=== PATIENT | female | born 1935 | race Caucasian/White ===

== ENCOUNTER 2016-10-11 12:20 | Inpatient (IN) | payer MEDICARE, BC ==
[~2016-10-11] VITALS: Ht 165.1 cm; Wt 64.9 kg
[~2016-10-11 12:20] MED LIST: ABAT250V IV; APIX2.5T PO; CALC500T71 PO; CHOL100043 PO; DILT120T2 PO; FOLI1TAB16 PO; FURO-152 PO; HYDR-3657 PO; LOSA50TA21 PO; METH15TA3 PO; MULT-661 PO; PRAV20TA PO; VIT1CAPS32 PO; VIT1CAPS9 PO; ZOLE5INF IV
--- NOTE | 2016-10-11 12:35 | NUR ---
Approx 10 days ago, pt states she developed s/s of a head cold, since has spread more of chest/bronchial infection with productive, yellow sputum, cough, and started to develop slight dyspnea. LS =, slightly diminished with crackles. Pt denies CP, dizziness, n/v, no other complaints, no distress noted.
[2016-10-11] MEDS ORDERED: ONDA4TAB11 PO (12:49)
[2016-10-11] MEDS ORDERED: VIT1CAPS9 PO (12:49)
[2016-10-11] MEDS ORDERED: ERGO500047 PO (12:49)
[2016-10-11] MEDS ORDERED: ATEN25TA PO (12:49)
[2016-10-11] MEDS ORDERED: CEFTRIAXONE 1 G in IV DEXTROSE 5% 50 ML IV ONE (13:00)
[2016-10-11] MEDS ORDERED: IV NORMAL SALINE 500 ML BAG IV ONE (13:00)
[2016-10-11] MEDS ORDERED: ALBUTEROL SULFATE 2.5 MG/3 ML NEBU NEB ONE (13:00)
[2016-10-11] MEDS ORDERED: AZITHROMYCIN IV 500 MG in IV DEXTROSE 5% 250 ML IV ONE (13:00)
[2016-10-11 13:08] LABS: BASOPHILS # (AUTO) 0.1 K/uL (0.0-8.0); BASOPHILS % (AUTO) 0.9 % (0.0-2.0); EOSINOPHILS # (AUTO) 0.2 K/uL (0.0-0.7); EOSINOPHILS % (AUTO) 1.9 % (0.0-7.0); HEMATOCRIT 32.7 % (37-47); HEMOGLOBIN 10.7 G/DL (12.0-16.0); LYMPHOCYTES # (AUTO) 0.7 K/UL (0.8-4.8); LYMPHOCYTES % (AUTO) 6.3 % (20.5-51.5); MEAN CORPUSCULAR HEMOGLOBIN 30.3 UUG (27.0-31.0); MEAN CORPUSCULAR HGB CONC 33 g/dL (32.0-37.0); MEAN CORPUSCULAR VOLUME 92.7 FL (81.0-99.0); NEUTROPHILS # (AUTO) 8.8 K/UL (1.8-8.9); NEUTROPHILS % (AUTO) 81.9 % (38.5-71.5); PLATELET COUNT (AUTO) 440 K/UL (150-450); RED BLOOD CELL COUNT(AUTO) 3.53 MIL/UL (4.2-5.4); WHITE BLOOD COUNT (AUTO) 10.8 K/UL (4.0-11.2)
[2016-10-11] MEDS ORDERED: ALBUTEROL SULFATE 2.5 MG/3 ML NEBU ONE (13:08)
[2016-10-11 13:17] LABS: CARBON DIOXIDE 27 mmol/L (21-32); CHLORIDE 105 mmol/L (98-107); CREATININE 1.5 mg/dL (0.6-1.3); GLUCOSE 107 mg/dL (74-106); POTASSIUM 4.2 mmol/L (3.5-5.1); UREA NITROGEN, BLOOD 19 mg/dL (7-18)
[2016-10-11 13:24] LABS: BAND % (MANUAL) 7 % (0-10); EOSINOPHILS % (MANUAL) 4 % (0-8); LYMPHOCYTES % (MANUAL) 6 % (20-40); MONOCYTES % (MANUAL) 7 % (2-10); MYELOCYTES % 1 % (0-0); NEUTROPHILS % (MANUAL) 75 % (42-75)
[2016-10-11 13:30] LABS: ALANINE AMINOTRANSFERASE 14 U/L (14-59); ALKALINE PHOSPHATASE 62 U/L (50-136); ASPARTATE AMINOTRANSFERASE 16 U/L (15-37); BILIRUBIN,DIRECT 0.1 mg/dL (0.0-0.2); BILIRUBIN,TOTAL 0.3 mg/dL (0.2-1.0); TOTAL PROTEIN, SERUM 6.9 g/dL (6.4-8.2)
--- NOTE | 2016-10-11 16:10 | NUR ---
called to give report to Jono, she will call back
--- NOTE | 2016-10-11 16:17 | NUR ---
Gave report to YAHAIRA De La Cruz. Pt resting in bed, no complaints, no distress noted
--- NOTE | 2016-10-11 16:45 | NUR ---
NEW PATIENT TO ROOM 214 AWAKE ALERT COOPERATE WELL NO SOB AT THIS TIME VS TAKEN STABLE CALL LIGHT INSTRUCTION AND TOLD TO CALL WHEN NEEDED
[2016-10-11 17:09] VITALS: BP 128/51
--- NOTE | 2016-10-11 17:30 | NUR ---
GRIS GARCIA WAS CALL TO INFORM OF PATIENT ADM AND NEW ORDER IN CHART EAT DINNER WELL FAMILY AT BEDSIDE
[2016-10-11] MEDS ORDERED: BUMETANIDE INJ 3 MG in IV DEXTROSE 5% 48 ML IV ONE (18:00)
[2016-10-11] MEDS ORDERED: ONDANSETRON ODT 4 MG TAB.RAPDIS SL PRN (18:00)
[2016-10-11] MEDS ORDERED: ACETAMINOPHEN 325 MG TABLET PO PRN (18:00)
--- NOTE | 2016-10-11 18:00 | NUR ---
C/O OF BACK PAIN MED GIVEN ORDER
[2016-10-11] MEDS: HYDROCODONE/APAP 10-325 MG TABLET PO PRN (18:09)
[2016-10-11] MEDS: APIXABAN 5 MG TABLET PO SCH (18:35)
[2016-10-11 20:00] VITALS: BP 135/52
[2016-10-11] MEDS: ATORVASTATIN 20 MG TABLET PO SCH (20:45)
--- NOTE | 2016-10-11 20:55 | NUR ---
PT BACK FROM CT SCAN, NOT DONE DUE TO VERTIGO. PT STATES MECLIZINE WORKS FOR HER FOR VERTIGO. MD GRIS WELCH MADE AWARE, WITH NEW ORDER. CARRIED OUT. WILL CONTINUE TO MONITOR.
[2016-10-11] MEDS: ATENOLOL 25 MG TABLET PO SCH (20:56)
[2016-10-11] MEDS ORDERED: MECLIZINE HCL 25 MG TABLET PO PRN (21:00)
[2016-10-11] MEDS ORDERED: MECLIZINE HCL 25 MG TABLET ONE (21:01)
[2016-10-11] MEDS ORDERED: ATENOLOL 25 MG TABLET ONE (21:04)
--- NOTE | 2016-10-11 22:20 | NUR ---
PT BACK FROM CT OF CHEST W/O CONTRAST, SECOND ATTEMPT SUCCESSFUL. MED EFFECTIVE. PT A/OX4, IN NO ACUTE DISTRESS. NO SOB NOTED/REPORTED. DENIES N/V AT THIS TIME. BUMEX STARTED ORDERED. CALL LIGHT IN REACH. SAFETY MEASURES IN PLACE. WILL CONTINUE TO MONITOR.
[2016-10-12] VITALS: BP 145/63
[2016-10-12] MEDS: HYDROCODONE/APAP 10-325 MG TABLET PO PRN ×4 (00:03→23:42)
[2016-10-12 04:00] VITALS: BP 130/63
[2016-10-12 04:59] LABS: *BILIRUBIN,URIN NEGATIVE (NEGATIVE); *BLOOD, URINE NEGATIVE (NEGATIVE); *CLARITY,URINE CLEAR (CLEAR); *COLOR,URINE STRAW (YELLOW); *KETONES,URINE NEGATIVE (NEGATIVE); *PROTEIN,URINE NEGATIVE (NEGATIVE); *UROBILINOGEN,URINE 0.2 E.U./dl (NORMAL); LEUKOCYTE ESTERASE ,URINE TRACE (NEGATIVE); NITRITE, URINE NEGATIVE (NEGATIVE); UGLUCOSE NEGATIVE (NEGATIVE)
[2016-10-12 05:46] LABS: BACTERIA,URINE NONE SEEN /HPF (NONE SEEN); RBC,URINE 0-3 /HPF (0-3); SQUAMOUS EPITHELIAL CELL,UR FEW /HPF (NONE SEEN)
[2016-10-12 06:40] LABS: BASOPHILS # (AUTO) 0.1 K/uL (0.0-8.0); BASOPHILS % (AUTO) 0.7 % (0.0-2.0); EOSINOPHILS # (AUTO) 0.3 K/uL (0.0-0.7); EOSINOPHILS % (AUTO) 2.8 % (0.0-7.0); HEMATOCRIT 31.5 % (37-47); HEMOGLOBIN 10.7 G/DL (12.0-16.0); LYMPHOCYTES # (AUTO) 0.8 K/UL (0.8-4.8); LYMPHOCYTES % (AUTO) 8.4 % (20.5-51.5); MEAN CORPUSCULAR HEMOGLOBIN 32.1 UUG (27.0-31.0); MEAN CORPUSCULAR HGB CONC 34 g/dL (32.0-37.0); MEAN CORPUSCULAR VOLUME 95.1 FL (81.0-99.0); MONOCYTES # (AUTO) 1.3 K/UL (0.1-1.30); MONOCYTES % (AUTO) 13.9 % (0.0-11.0); NEUTROPHILS # (AUTO) 7.1 K/UL (1.8-8.9); NEUTROPHILS % (AUTO) 74.2 % (38.5-71.5); PLATELET COUNT (AUTO) 408 K/UL (150-450); RED BLOOD CELL COUNT(AUTO) 3.32 MIL/UL (4.2-5.4); WHITE BLOOD COUNT (AUTO) 9.6 K/UL (4.0-11.2)
--- NOTE | 2016-10-12 06:57 | NUR ---
PT SLEPT INTERMITTENTLY THROUGHOUT THE NIGHT. NO ACUTE DISTRESS NOTED. C/O HIP AND BACK PAIN MANAGED WITH PRN PAIN MED GIVEN X1 PER SHIFT, EFFECTIVE. BRP WITH WALKER WITH ASSIST, STEADY GAIT, GOOD URINE OUTPUT, DIURETIC EFFECTIVE. VS STABLE. ON TELE: SR ON THE MONITOR, HR-[id number]. ALL SAFETY NEEDS MET. CALL LIGHT IN REACH. CONTINUE PLAN OF CARE.
[2016-10-12 07:09] LABS: ALANINE AMINOTRANSFERASE 12 U/L (14-59); ALKALINE PHOSPHATASE 61 U/L (50-136); ASPARTATE AMINOTRANSFERASE 17 U/L (15-37); BILIRUBIN,TOTAL 0.2 mg/dL (0.2-1.0); CARBON DIOXIDE 29 mmol/L (21-32); CHLORIDE 105 mmol/L (98-107); CHOLESTEROL 124 mg/dL (<200); CREATININE 1.4 mg/dL (0.6-1.3); GLUCOSE 89 mg/dL (74-106); HDL CHOLESTEROL 31 mg/dL (40-60); MAGNESIUM 1.8 mg/dL (1.8-2.4); PHOSPHOROUS 3.2 mg/dL (2.5-4.9); POTASSIUM 3.9 mmol/L (3.5-5.1); TOTAL PROTEIN, SERUM 6.9 g/dL (6.4-8.2); TRIGLYCERIDES 137 MG/DL (30-150); UREA NITROGEN, BLOOD 18 mg/dL (7-18)
[2016-10-12 07:11] LABS: THYROID STIMULATING HORMONE 1.915 mIU/mL (0.358-3.740)
[2016-10-12] MEDS: DILTIAZEM HCL CD 120 MG CAP.SR.24H PO SCH (08:05)
[2016-10-12] MEDS: FUROSEMIDE 20 MG TABLET PO SCH (08:05)
--- NOTE | 2016-10-12 08:30 | NUR ---
AWAKE ALERT COOPERATE WELL NO SOB STATE PAIN MED HELP TO RELIEF PAIN EAT BREAKFAST MOD AMT ON ASPIRATION /FALL PRECAUTION CALL DHILLON IN REACH
[2016-10-12] MEDS ORDERED: LOSARTAN POTASSIUM 50 MG TABLET PO SCH (09:00)
[2016-10-12] MEDS ORDERED: ATENOLOL 25 MG TABLET PO SCH (09:00)
--- NOTE | 2016-10-12 10:30 | NUR ---
DR WELCH AND DR FRIEDMAN SEE PATIENT AND ORDER CT OF LUNG WITH BX AND THORACETESIS CONSENT SIGNS AND EXPLAINED PROCEDURE TO PATIENT BY DR ,VERBALIZES UNDERSTAND
[2016-10-12] MEDS: AZITHROMYCIN 250 MG TABLET PO SCH (10:36)
[2016-10-12] MEDS: APIXABAN 5 MG TABLET PO SCH ×2 (10:37→17:30)
[2016-10-12] MEDS ORDERED: PATIENT MAY USE OWN MED- MD OK PO SCH (11:45)
[2016-10-12 12:16] VITALS: BP 117/50
--- NOTE | 2016-10-12 14:00 | NUR ---
CONSENT SIGNS FOR THORACENTESIS AND CT LUNG WITH BX TODAY
[2016-10-12 15:47] VITALS: BP 101/44
--- NOTE | 2016-10-12 16:00 | NUR ---
THORACENTESIS PERFORM AT BEDSIDE RAMOS PROCEDURE WELL TAKE OUT PLEURAL FLD 610ML AND SENT TO LAB ORDER
--- NOTE | 2016-10-12 16:30 | NUR ---
VS TAKEN STABLE CXR DONE AFTER PROCEDURE PROTOCOL NO PAIN OR SOB FRIEND AT BEDSIDE
[2016-10-12] MEDS: PRESERVISION PO SCH (17:30)
[2016-10-12] MEDS: CRANBERRY 4200 MG PO SCH (17:30)
--- NOTE | 2016-10-12 18:00 | NUR ---
RESTING QUIET NO SOB OR RESPIRATORY DISTRESS SAFETY MEASURE PROVIDED CALL DHILLON WITHIN REACH
--- NOTE | 2016-10-12 19:40 | NUR ---
PT RECEIVED IN BED, AWAKE, ALERT AND COMFORTABLE. ABLE TO MAKE NEEDS KNOWN. SAFETY MEASURES IMPLEMENTED. CALL LIGHT WITHIN REACH. WILL CONTINUE TO MONITOR.
[2016-10-12] MEDS: ATORVASTATIN 20 MG TABLET PO SCH (20:10)
[2016-10-12] MEDS: ATENOLOL 25 MG TABLET PO SCH (20:11)
[2016-10-12 20:20] VITALS: BP 112/45
[2016-10-12 22:40] LABS: *URINE TOTAL PROTEIN RANDOM 25.2 mg/dL (<150/24HR)
[2016-10-13] VITALS: BP 120/65
[2016-10-13 04:00] VITALS: BP 94/59
--- NOTE | 2016-10-13 06:39 | NUR ---
END OF SHIFT NOTES. PT SLEPT WELL THROUGHOUT SHIFT. NEEDS ATTENDED. V/S STABLE. NO SIGNS OF ACUTE DISTRESS. PT SINUS EMILIANA AT 58 ON TELE. SAFETY MAINTAINED.
[2016-10-13 06:49] LABS: BASOPHILS # (AUTO) 0.1 K/uL (0.0-8.0); BASOPHILS % (AUTO) 0.8 % (0.0-2.0); EOSINOPHILS # (AUTO) 0.3 K/uL (0.0-0.7); EOSINOPHILS % (AUTO) 2.7 % (0.0-7.0); HEMATOCRIT 32.3 % (37-47); HEMOGLOBIN 10.8 G/DL (12.0-16.0); LYMPHOCYTES # (AUTO) 1.2 K/UL (0.8-4.8); LYMPHOCYTES % (AUTO) 12.2 % (20.5-51.5); MEAN CORPUSCULAR HEMOGLOBIN 31.9 UUG (27.0-31.0); MEAN CORPUSCULAR HGB CONC 34 g/dL (32.0-37.0); MEAN CORPUSCULAR VOLUME 95.3 FL (81.0-99.0); MONOCYTES # (AUTO) 1.4 K/UL (0.1-1.30); MONOCYTES % (AUTO) 15.1 % (0.0-11.0); NEUTROPHILS # (AUTO) 6.5 K/UL (1.8-8.9); NEUTROPHILS % (AUTO) 69.2 % (38.5-71.5); PLATELET COUNT (AUTO) 404 K/UL (150-450); RED BLOOD CELL COUNT(AUTO) 3.39 MIL/UL (4.2-5.4); WHITE BLOOD COUNT (AUTO) 9.5 K/UL (4.0-11.2)
[2016-10-13 07:07] LABS: ALANINE AMINOTRANSFERASE 11 U/L (14-59); ALKALINE PHOSPHATASE 61 U/L (50-136); ASPARTATE AMINOTRANSFERASE 18 U/L (15-37); BILIRUBIN,TOTAL 0.2 mg/dL (0.2-1.0); CARBON DIOXIDE 31 mmol/L (21-32); CHLORIDE 103 mmol/L (98-107); CREATINE KINASE, TOTAL 27 U/L (26-192); CREATININE 1.7 mg/dL (0.6-1.3); GLUCOSE 98 mg/dL (74-106); LACTATE DEHYDROGENASE 209 U/L (81-234); MAGNESIUM 2.1 mg/dL (1.8-2.4); PHOSPHOROUS 4.2 mg/dL (2.5-4.9); POTASSIUM 4.4 mmol/L (3.5-5.1); TOTAL PROTEIN, SERUM 6.6 g/dL (6.4-8.2); UREA NITROGEN, BLOOD 25 mg/dL (7-18)
[2016-10-13 07:13] LABS: THYROID STIMULATING HORMONE 0.775 mIU/mL (0.358-3.740)
[2016-10-13 07:23] LABS: IRON, SERUM 13 ug/dL (50-175)
[2016-10-13 07:45] LABS: FERRITIN 295 ng/mL (8-252)
[2016-10-13] MEDS: HYDROCODONE/APAP 10-325 MG TABLET PO PRN ×3 (08:45→19:46)
[2016-10-13] MEDS: AZITHROMYCIN 250 MG TABLET PO SCH (08:45)
[2016-10-13] MEDS: FUROSEMIDE 20 MG TABLET PO SCH (08:45)
[2016-10-13] MEDS: PRESERVISION PO SCH ×2 (08:48→16:37)
[2016-10-13] MEDS: CRANBERRY 4200 MG PO SCH ×2 (08:48→16:37)
[2016-10-13] MEDS ORDERED: IV 1/2NS 1000 ML 500 ML IV ONE (09:15)
[2016-10-13 09:48] LABS: *BILIRUBIN,URIN NEGATIVE (NEGATIVE); *BLOOD, URINE NEGATIVE (NEGATIVE); *COLOR,URINE YELLOW (YELLOW); *KETONES,URINE NEGATIVE (NEGATIVE); *PROTEIN,URINE 1+ (NEGATIVE); *UROBILINOGEN,URINE 0.2 E.U./dl (NORMAL); LEUKOCYTE ESTERASE ,URINE NEGATIVE (NEGATIVE); NITRITE, URINE NEGATIVE (NEGATIVE); UGLUCOSE NEGATIVE (NEGATIVE)
[2016-10-13 10:12] LABS: *CLARITY,URINE HAZY (CLEAR)
[2016-10-13 10:13] LABS: BACTERIA,URINE FEW /HPF (NONE SEEN); RBC,URINE 0-3 /HPF (0-3); SQUAMOUS EPITHELIAL CELL,UR MODERATE /HPF (NONE SEEN); WBC,URINE 0-3 /HPF (0-3)
[2016-10-13] MEDS: APIXABAN 5 MG TABLET PO SCH (10:17)
[2016-10-13] MEDS: DILTIAZEM HCL CD 120 MG CAP.SR.24H PO SCH (10:22)
[2016-10-13 11:43] LABS: BAND % (MANUAL) 3 % (0-10); EOSINOPHILS % (MANUAL) 2 % (0-8); LYMPHOCYTES % (MANUAL) 12 % (20-40); MONOCYTES % (MANUAL) 12 % (2-10); NEUTROPHILS % (MANUAL) 71 % (42-75)
[2016-10-13 11:54] VITALS: BP 109/48
[2016-10-13] MEDS ORDERED: IPRATROPIUM BROMIDE 0.5 MG/2.5 ML NEBU NEB PRN (13:00)
[2016-10-13] MEDS ORDERED: ALBUTEROL SULFATE 2.5 MG/3 ML NEBU NEB PRN (13:00)
[2016-10-13] MEDS: CEFTRIAXONE 1 G in IV DEXTROSE 5% 50 ML IV SCH (13:42)
[2016-10-13] MEDS ORDERED: MAGNESIUM HYDROXIDE 30 ML LIQUID UDC PO PRN (15:15)
--- NOTE | 2016-10-13 15:17 | NUR ---
CONSENT FOR BRONCHOSCOPY SIGNED
[2016-10-13] MEDS ORDERED: MIRALAX 17 GM POWD.PACK PO PRN (15:30)
[2016-10-13 15:38] VITALS: BP 107/48
--- NOTE | 2016-10-13 18:40 | NUR ---
END OF SHIFT NOTE: PT RESTING COMFORTABLY IN BED, IV INTACT AND PATENT. PT MADE AWARE OF NPO STATUS AT 4AM. 6 AM MEDS OKAY WITH SIP OF WATER PER DR FRIEDMAN. PT WILL HAVE BRONCHOSCOPY TOMORROW AROUND NOON. URINE COLLECTED AND SENT TO LAB. PT STATES HAVE NOT HAD BM SINCE WEDNESDAY, SENNA ORDERED FOR TONIGHT. PT DID NOT WANT PT TODAY. MEDICATED FOR PAIN NEEDED. ALL SAFETY AND COMFORT MEASURES MAINTAINED THROUGHOUT SHIFT, CALL LIGHT IN REACH
[2016-10-13 19:00] VITALS: BP 117/50
[2016-10-13] MEDS: SENNOSIDES 1 TABLET PO SCH (20:12)
[2016-10-13] MEDS: FERROUS SULFATE 325 MG TABEC PO SCH (20:12)
[2016-10-13] MEDS: ATORVASTATIN 20 MG TABLET PO SCH (20:12)
--- NOTE | 2016-10-13 20:15 | NUR ---
RECEIVED PT IN BED A/OX4, NO ACUTE DISTRESS NOTED. BREATHING IS NONLABORED. PT C/O SEVERE PAIN REQUESTING PAIN MED, NORCO GIVEN PRESCRIBED. WILL REASSESS. PT NOTED TO HAVE MILD FEVER, TYLENOL GIVEN ORDERED. ALL NEEDS ATTENDED AT THIS TIME. MADE COMFORTABLE. CALL LIGHT IN REACH. BED IN LOW/LOCKED POSITION. WILL CONTINUE TO MONITOR.
[2016-10-14 04:00] VITALS: BP 138/50
[2016-10-14] MEDS: PANTOPRAZOLE SODIUM 40 MG TABLET.DR PO SCH (06:00)
--- NOTE | 2016-10-14 06:31 | NUR ---
END OF SHIFT NOTE: PT IN BED RESTING COMFORTABLY. NO ACUTE DISTRESS NOTED PER SHIFT. VS STABLE. AFEBRILE. KEPT NPO AFTER 4AM FOR BRONCHOSCOPY, EXCEPT MEDS. UNABLE TO OBTAIN STOOL OB, NO BM PER SHIFT, SENNA GIVEN PRESCRIBED. WILL ENDORSE TO INCOMING NURSE. PAIN MANAGED WITH MED PRESCRIBED NEEDED. ALL NEEDS MET. CALL LIGHT WITHIN EASY REACH. SAFETY MEASURES MAINTAINED. CONTINUE CARE PLANNED.
[2016-10-14 06:48] LABS: BASOPHILS # (AUTO) 0.1 K/uL (0.0-8.0); BASOPHILS % (AUTO) 0.5 % (0.0-2.0); EOSINOPHILS # (AUTO) 0.5 K/uL (0.0-0.7); EOSINOPHILS % (AUTO) 3.7 % (0.0-7.0); HEMATOCRIT 30.5 % (37-47); HEMOGLOBIN 10.4 G/DL (12.0-16.0); LYMPHOCYTES # (AUTO) 0.8 K/UL (0.8-4.8); LYMPHOCYTES % (AUTO) 6.2 % (20.5-51.5); MEAN CORPUSCULAR HEMOGLOBIN 32.3 UUG (27.0-31.0); MEAN CORPUSCULAR HGB CONC 34 g/dL (32.0-37.0); MEAN CORPUSCULAR VOLUME 95.1 FL (81.0-99.0); MONOCYTES # (AUTO) 1.7 K/UL (0.1-1.30); MONOCYTES % (AUTO) 12.6 % (0.0-11.0); NEUTROPHILS # (AUTO) 10.4 K/UL (1.8-8.9); PLATELET COUNT (AUTO) 365 K/UL (150-450); RED BLOOD CELL COUNT(AUTO) 3.21 MIL/UL (4.2-5.4); WHITE BLOOD COUNT (AUTO) 13.5 K/UL (4.0-11.2)
[2016-10-14 07:08] LABS: ALANINE AMINOTRANSFERASE 9 U/L (14-59); ALKALINE PHOSPHATASE 56 U/L (50-136); ASPARTATE AMINOTRANSFERASE 16 U/L (15-37); BILIRUBIN,TOTAL 0.2 mg/dL (0.2-1.0); CARBON DIOXIDE 29 mmol/L (21-32); CHLORIDE 103 mmol/L (98-107); CREATININE 1.6 mg/dL (0.6-1.3); GLUCOSE 102 mg/dL (74-106); PHOSPHOROUS 3.9 mg/dL (2.5-4.9); POTASSIUM 4.3 mmol/L (3.5-5.1); TOTAL PROTEIN, SERUM 6.2 g/dL (6.4-8.2); UREA NITROGEN, BLOOD 26 mg/dL (7-18)
[2016-10-14] MEDS: PRESERVISION PO SCH ×2 (09:00→16:49)
[2016-10-14] MEDS: CRANBERRY 4200 MG PO SCH ×2 (09:00→16:49)
[2016-10-14] MEDS: FERROUS SULFATE 325 MG TABEC PO SCH ×2 (09:00→20:00)
[2016-10-14 09:49] LABS: EOSINOPHILS % (MANUAL) 2 % (0-8); LYMPHOCYTES % (MANUAL) 8 % (20-40); MONOCYTES % (MANUAL) 9 % (2-10); NEUTROPHILS % (MANUAL) 81 % (42-75)
[2016-10-14 11:00] VITALS: BP 135/48
[2016-10-14 11:09] LABS: VIT D, 25-HYDROXY 65.2 ng/mL (30.0-100.0)
--- NOTE | 2016-10-14 11:26 | NUR ---
ANTIVERT ORDERED AND TAKEN OUT OF PIXIS. OR NURSE WILL TAKE DOWN WITH PT TO DOUBLE CHECK WITH ANESTHESIOLOGIST THAT IT IS OKAY TO TAKE. WILL FOLLOW UP.
[2016-10-14] MEDS ORDERED: MECLIZINE HCL 25 MG TABLET PO ONE (11:30)
[2016-10-14] MEDS ORDERED: SUCCINYLCHOLINE CHLORIDE 200 MG/10 ML VIAL ONE (12:06)
[2016-10-14 12:29] LABS: *BILIRUBIN,URIN NEGATIVE (NEGATIVE); *BLOOD, URINE NEGATIVE (NEGATIVE); *CLARITY,URINE SLIGHTLY CLOUDY (CLEAR); *COLOR,URINE YELLOW (YELLOW); *KETONES,URINE NEGATIVE (NEGATIVE); *PROTEIN,URINE TRACE (NEGATIVE); *UROBILINOGEN,URINE 0.2 E.U./dl (NORMAL); LEUKOCYTE ESTERASE ,URINE 1+ (NEGATIVE); NITRITE, URINE NEGATIVE (NEGATIVE); UGLUCOSE NEGATIVE (NEGATIVE)
[2016-10-14 12:41] LABS: BACTERIA,URINE FEW /HPF (NONE SEEN); RBC,URINE NONE SEEN /HPF (0-3); SQUAMOUS EPITHELIAL CELL,UR MANY /HPF (NONE SEEN); YEAST,URINE MODERATE /HPF (NONE SEEN)
--- NOTE | 2016-10-14 13:10 | NUR ---
INHALATION TX GIVEN IN PACU. 2.5MG ALBUTEROL REMOVED FROM PYXIS
[2016-10-14] MEDS ORDERED: ALBUTEROL SULFATE 2.5 MG/3 ML NEBU ONE (13:20)
[2016-10-14 14:11] VITALS: BP 110/52
--- NOTE | 2016-10-14 14:12 | NUR ---
PT BACK IN ROOM, VS STABLE TOLERATING LIQUID AND FOOD. COMPLAINING OF PAIN 12/17. WILL CONTINUE TO MONITOR
[2016-10-14] MEDS: DILTIAZEM HCL CD 120 MG CAP.SR.24H PO SCH (14:21)
[2016-10-14] MEDS: HYDROCODONE/APAP 10-325 MG TABLET PO PRN ×2 (14:21→19:53)
[2016-10-14] MEDS: AZITHROMYCIN 250 MG TABLET PO SCH (14:21)
[2016-10-14 14:27] VITALS: BP 128/56
[2016-10-14] MEDS ORDERED: EPHEDRINE SULFATE 50 MG/ML AMPUL MC ONE (15:11)
[2016-10-14] MEDS ORDERED: LIDOCAINE HCL 1% 20 ML VIAL MC ONE (15:11)
[2016-10-14] MEDS ORDERED: SEVOFLURANE 250 ML BOTTLE IH ONE (15:11)
[2016-10-14] MEDS ORDERED: ONDANSETRON 4 MG/2 ML VIAL IV ONE (15:11)
[2016-10-14] MEDS ORDERED: PROPOFOL 200 MG/20 ML BOTTLE IV ONE (15:11)
[2016-10-14] MEDS ORDERED: IV NORMAL SALINE 1000 ML BAG IV ONE (15:11)
[2016-10-14] MEDS ORDERED: DEXAMETHASONE SOD PHOSPHATE 4 MG INJ IV ONE (15:11)
[2016-10-14] MEDS: CEFTRIAXONE 1 G in IV DEXTROSE 5% 50 ML IV SCH (15:19)
[2016-10-14] MEDS: MICAFUNGIN SODIUM 100 MG in IV NORMAL SALINE 100 ML IV SCH (15:50)
--- NOTE | 2016-10-14 15:54 | NUR ---
MEDICATIONS WERE GIVEN LATE, PT IN SURGERY
[2016-10-14 15:58] VITALS: BP 106/54
--- NOTE | 2016-10-14 18:38 | NUR ---
pt sitting in chair, in no acute distress. all safety and comfort measures maintained throughout shift, call light in reach
[2016-10-14 20:00] VITALS: BP 105/42
[2016-10-14] MEDS: ATORVASTATIN 20 MG TABLET PO SCH (20:00)
[2016-10-14] MEDS: SENNOSIDES 1 TABLET PO SCH (20:00)
[2016-10-14 23:28] LABS: *OCCULT BLOOD STOOL NEGATIVE (NEGATIVE)
[2016-10-15] MEDS: HYDROCODONE/APAP 10-325 MG TABLET PO PRN ×4 (03:29→20:41)
[2016-10-15 04:45] VITALS: BP 118/58
[2016-10-15] MEDS: PANTOPRAZOLE SODIUM 40 MG TABLET.DR PO SCH (06:10)
[2016-10-15 06:34] LABS: ALANINE AMINOTRANSFERASE 14 U/L (14-59); ALKALINE PHOSPHATASE 60 U/L (50-136); ASPARTATE AMINOTRANSFERASE 16 U/L (15-37); BILIRUBIN,TOTAL 0.1 mg/dL (0.2-1.0); CARBON DIOXIDE 28 mmol/L (21-32); CHLORIDE 103 mmol/L (98-107); CREATININE 1.4 mg/dL (0.6-1.3); GLUCOSE 136 mg/dL (74-106); MAGNESIUM 1.9 mg/dL (1.8-2.4); PHOSPHOROUS 3.3 mg/dL (2.5-4.9); POTASSIUM 4.3 mmol/L (3.5-5.1); TOTAL PROTEIN, SERUM 6.4 g/dL (6.4-8.2); UREA NITROGEN, BLOOD 25 mg/dL (7-18)
[2016-10-15 06:35] LABS: EOSINOPHILS # (AUTO) 0.1 K/uL (0.0-0.7); EOSINOPHILS % (AUTO) 0.7 % (0.0-7.0); HEMATOCRIT 29.1 % (37-47); LYMPHOCYTES # (AUTO) 0.5 K/UL (0.8-4.8); LYMPHOCYTES % (AUTO) 3.4 % (20.5-51.5); MEAN CORPUSCULAR HEMOGLOBIN 32.4 UUG (27.0-31.0); MEAN CORPUSCULAR HGB CONC 34 g/dL (32.0-37.0); MEAN CORPUSCULAR VOLUME 94.6 FL (81.0-99.0); MONOCYTES # (AUTO) 0.8 K/UL (0.1-1.30); MONOCYTES % (AUTO) 5.5 % (0.0-11.0); NEUTROPHILS # (AUTO) 12.4 K/UL (1.8-8.9); NEUTROPHILS % (AUTO) 90.4 % (38.5-71.5); PLATELET COUNT (AUTO) 404 K/UL (150-450); RED BLOOD CELL COUNT(AUTO) 3.08 MIL/UL (4.2-5.4); WHITE BLOOD COUNT (AUTO) 13.8 K/UL (4.0-11.2)
--- NOTE | 2016-10-15 08:04 | NUR ---
PATIENT ALERT ORIENTED, ON PAIN MANAGEMENT, AMBULATE IN HALLWAYS, NO SOB NO CHEST PAIN, NO DISTRESS.
[2016-10-15 08:11] LABS: *IMMUNOGLOBULIN G, SERUM 611 mg/dL (700-1600); IMMUNOGLOBULIN A, SERUM 212 mg/dL (64-422); IMMUNOGLOBULIN M, SERUM 69 mg/dL (26-217)
[2016-10-15] MEDS: FERROUS SULFATE 325 MG TABEC PO SCH ×2 (08:16→20:39)
[2016-10-15] MEDS: PRESERVISION PO SCH ×2 (08:17→17:13)
[2016-10-15] MEDS: AZITHROMYCIN 250 MG TABLET PO SCH (08:17)
[2016-10-15] MEDS: DILTIAZEM HCL CD 120 MG CAP.SR.24H PO SCH (08:18)
[2016-10-15] MEDS: ELIQUIS 2.5 MG PO SCH ×2 (08:19→17:13)
[2016-10-15 10:11] LABS: ALBUMIN 2.8 g/dL (2.9-4.4); ALPHA-1-GLOBULIN 0.4 g/dL (0.0-0.4); GAMMA GLOBULIN 0.5 g/dL (0.4-1.8); GLOBULIN, TOTAL 2.9 g/dL (2.2-3.9); M-SPIKE Not Observed g/dL (Not Observed)
[2016-10-15 10:11] LABS: ALBUMIN 2.9 g/dL (2.9-4.4); ALPHA-1-GLOBULIN 0.4 g/dL (0.0-0.4); ALPHA-2-GLOBULIN 0.9 g/dL (0.4-1.0); BETA GLOBULIN 0.9 g/dL (0.7-1.3); GAMMA GLOBULIN 0.7 g/dL (0.4-1.8); GLOBULIN, TOTAL 2.8 g/dL (2.2-3.9); M-SPIKE Not Observed g/dL (Not Observed)
[2016-10-15 11:54] VITALS: BP 115/45
[2016-10-15] MEDS: CRANBERRY 4200 MG PO SCH ×2 (12:08→17:13)
[2016-10-15] MEDS: CEFTRIAXONE 1 G in IV DEXTROSE 5% 50 ML IV SCH (12:08)
[2016-10-15] MEDS: MICAFUNGIN SODIUM 100 MG in IV NORMAL SALINE 100 ML IV SCH (14:40)
[2016-10-15 15:30] VITALS: BP 118/47
--- NOTE | 2016-10-15 16:42 | NUR ---
US TECH IN ROOM FOR BLE US
[2016-10-15] MEDS: CEFTAZIDIME 1 G in IV DEXTROSE 5% 50 ML IV SCH (18:08)
--- NOTE | 2016-10-15 18:29 | NUR ---
PT IN BED WATCHING TV, IN NO ACUTE DISTRESS, IV INTACT AND PATENT, ALL SAFETY AND COMFORT MEASURES MAINTAINED THROUGHOUT SHIFT, CALL LIGHT IN REACH
--- NOTE | 2016-10-15 19:15 | NUR ---
PATIENT AWAKE, AMBULATE TO HALLWAYS, NO SOB NO CHEST PAIN, ON PAIN MANAGEMENT. WITH NON PRODUCTIVE COUGH NOTED, NO SPUTUM WAS PRODUCE. CONT TO MONITOR.
[2016-10-15 20:00] VITALS: BP 125/52
[2016-10-15] MEDS: SENNOSIDES 1 TABLET PO SCH (20:38)
[2016-10-15] MEDS: ATORVASTATIN 20 MG TABLET PO SCH (20:39)
[2016-10-16] MEDS: HYDROCODONE/APAP 10-325 MG TABLET PO PRN ×3 (04:24→21:52)
[2016-10-16 04:55] VITALS: BP 113/46
[2016-10-16] MEDS: CEFTAZIDIME 1 G in IV DEXTROSE 5% 50 ML IV SCH ×2 (06:04→17:09)
[2016-10-16] MEDS: PANTOPRAZOLE SODIUM 40 MG TABLET.DR PO SCH (06:04)
--- NOTE | 2016-10-16 07:01 | NUR ---
PATIENT SLEPT MOST OF THE NIGHT, ON PAIN MANAGEMENT, AMBULATE TO BATHROOM, NO SOB NO CHEST PAIN NO S/S OF DISTRESS.
[2016-10-16 07:03] LABS: ALANINE AMINOTRANSFERASE 32 U/L (14-59); ALKALINE PHOSPHATASE 60 U/L (50-136); ASPARTATE AMINOTRANSFERASE 33 U/L (15-37); BILIRUBIN,TOTAL 0.1 mg/dL (0.2-1.0); CARBON DIOXIDE 32 mmol/L (21-32); CHLORIDE 104 mmol/L (98-107); CREATININE 1.4 mg/dL (0.6-1.3); GLUCOSE 89 mg/dL (74-106); MAGNESIUM 2.2 mg/dL (1.8-2.4); PHOSPHOROUS 3.2 mg/dL (2.5-4.9); POTASSIUM 4.4 mmol/L (3.5-5.1); TOTAL PROTEIN, SERUM 6.8 g/dL (6.4-8.2); UREA NITROGEN, BLOOD 31 mg/dL (7-18)
[2016-10-16 07:08] LABS: BASOPHILS # (AUTO) 0.1 K/uL (0.0-8.0); BASOPHILS % (AUTO) 0.3 % (0.0-2.0); EOSINOPHILS # (AUTO) 0.2 K/uL (0.0-0.7); EOSINOPHILS % (AUTO) 0.8 % (0.0-7.0); HEMATOCRIT 31.4 % (37-47); HEMOGLOBIN 10.6 G/DL (12.0-16.0); LYMPHOCYTES % (AUTO) 4.6 % (20.5-51.5); MEAN CORPUSCULAR HEMOGLOBIN 31.8 UUG (27.0-31.0); MEAN CORPUSCULAR HGB CONC 34 g/dL (32.0-37.0); MEAN CORPUSCULAR VOLUME 94.5 FL (81.0-99.0); MONOCYTES # (AUTO) 1.5 K/UL (0.1-1.30); MONOCYTES % (AUTO) 7.1 % (0.0-11.0); NEUTROPHILS # (AUTO) 18.1 K/UL (1.8-8.9); NEUTROPHILS % (AUTO) 87.2 % (38.5-71.5); PLATELET COUNT (AUTO) 498 K/UL (150-450); RED BLOOD CELL COUNT(AUTO) 3.32 MIL/UL (4.2-5.4)
[2016-10-16 07:13] LABS: WHITE BLOOD COUNT (AUTO) 20.9 K/UL (4.0-11.2)
[2016-10-16] MEDS: FERROUS SULFATE 325 MG TABEC PO SCH ×2 (08:07→20:34)
[2016-10-16] MEDS: DILTIAZEM HCL CD 120 MG CAP.SR.24H PO SCH (08:08)
[2016-10-16] MEDS: PRESERVISION PO SCH ×2 (08:11→16:20)
[2016-10-16] MEDS: ELIQUIS 2.5 MG PO SCH ×2 (08:11→16:20)
[2016-10-16] MEDS: CRANBERRY 4200 MG PO SCH ×2 (08:11→16:20)
[2016-10-16 10:33] LABS: EOSINOPHILS % (MANUAL) 2 % (0-8); LYMPHOCYTES % (MANUAL) 2 % (20-40); MONOCYTES % (MANUAL) 9 % (2-10); NEUTROPHILS % (MANUAL) 87 % (42-75)
[2016-10-16 11:26] VITALS: BP 136/56
[2016-10-16] MEDS: FOLIC ACID 1 MG TABLET PO SCH (11:32)
[2016-10-16 15:37] VITALS: BP 131/51
[2016-10-16 20:09] VITALS: BP 141/76
[2016-10-16] MEDS: SENNOSIDES 1 TABLET PO SCH (20:34)
[2016-10-16] MEDS: ATORVASTATIN 20 MG TABLET PO SCH (20:34)
--- NOTE | 2016-10-17 04:35 | NUR ---
PT C/O GEN PAIN, 11/16 LAST NIGHT. WAS GIVEN NORCO PRESCRIBED. NO FURTHER C/O PAIN. PT SLEEPING AT THIS TIME. IN NO ACUTE SIGNS OF DISTRESS. WILL CONTINUE TO MONITOR.
[2016-10-17] MEDS: CEFTAZIDIME 1 G in IV DEXTROSE 5% 50 ML IV SCH ×2 (05:28→17:10)
[2016-10-17] MEDS: PANTOPRAZOLE SODIUM 40 MG TABLET.DR PO SCH (06:06)
[2016-10-17 06:43] VITALS: BP 130/51
[2016-10-17 06:58] LABS: BASOPHILS # (AUTO) 0.1 K/uL (0.0-8.0); BASOPHILS % (AUTO) 0.6 % (0.0-2.0); EOSINOPHILS # (AUTO) 0.3 K/uL (0.0-0.7); EOSINOPHILS % (AUTO) 1.7 % (0.0-7.0); HEMATOCRIT 30.9 % (37-47); HEMOGLOBIN 10.3 G/DL (12.0-16.0); LYMPHOCYTES # (AUTO) 1.2 K/UL (0.8-4.8); LYMPHOCYTES % (AUTO) 7.2 % (20.5-51.5); MEAN CORPUSCULAR HGB CONC 34 g/dL (32.0-37.0); MEAN CORPUSCULAR VOLUME 95.5 FL (81.0-99.0); MONOCYTES # (AUTO) 1.9 K/UL (0.1-1.30); MONOCYTES % (AUTO) 11.9 % (0.0-11.0); NEUTROPHILS # (AUTO) 12.8 K/UL (1.8-8.9); NEUTROPHILS % (AUTO) 78.6 % (38.5-71.5); PLATELET COUNT (AUTO) 518 K/UL (150-450); RED BLOOD CELL COUNT(AUTO) 3.24 MIL/UL (4.2-5.4); WHITE BLOOD COUNT (AUTO) 16.3 K/UL (4.0-11.2)
[2016-10-17 07:14] LABS: ALANINE AMINOTRANSFERASE 35 U/L (14-59); ALKALINE PHOSPHATASE 64 U/L (50-136); ASPARTATE AMINOTRANSFERASE 27 U/L (15-37); BILIRUBIN,TOTAL 0.4 mg/dL (0.2-1.0); CARBON DIOXIDE 30 mmol/L (21-32); CHLORIDE 106 mmol/L (98-107); CREATININE 1.3 mg/dL (0.6-1.3); GLUCOSE 76 mg/dL (74-106); MAGNESIUM 2.2 mg/dL (1.8-2.4); PHOSPHOROUS 3.3 mg/dL (2.5-4.9); POTASSIUM 4.3 mmol/L (3.5-5.1); TOTAL PROTEIN, SERUM 6.7 g/dL (6.4-8.2); UREA NITROGEN, BLOOD 28 mg/dL (7-18)
[2016-10-17] MEDS: HYDROCODONE/APAP 10-325 MG TABLET PO PRN ×3 (07:51→20:35)
--- NOTE | 2016-10-17 07:51 | NUR ---
RECEIVED PATIENT IN BED AWAKE ALERT AND ORIENTED .PATIENT C/O HAVING GENERALIZED PAIN RELATED TO HER ARTHRITIS MEDICATED WITH NORCO ORDERED.PATIENT MADE COMFORTABLE AND WILL OBSERVE.
[2016-10-17] MEDS: PRESERVISION PO SCH ×2 (09:00→17:13)
[2016-10-17] MEDS: CRANBERRY 4200 MG PO SCH ×2 (09:00→17:13)
[2016-10-17] MEDS: FERROUS SULFATE 325 MG TABEC PO SCH ×2 (09:01→20:23)
[2016-10-17] MEDS: ELIQUIS 2.5 MG PO SCH ×2 (09:01→17:15)
[2016-10-17] MEDS: DILTIAZEM HCL CD 120 MG CAP.SR.24H PO SCH (09:02)
[2016-10-17] MEDS: FOLIC ACID 1 MG TABLET PO SCH (09:02)
[2016-10-17 12:00] VITALS: BP 131/54
--- NOTE | 2016-10-17 12:17 | NUR ---
PATIENT BROUGHT IN HER CALCIUM WITH VITAMIN D FROM HOME AND STATED THAT SHE TAKES 1000 MG DAILY AND THAT SHE ALREADY TOOK A DOSE SO DENISE NOTIFIED AND SHE OKAYED IT.
[2016-10-17 16:19] VITALS: BP 142/69
[2016-10-17 19:00] VITALS: BP 158/77
[2016-10-17] MEDS: SENNOSIDES 1 TABLET PO SCH (20:22)
[2016-10-17] MEDS: ATORVASTATIN 20 MG TABLET PO SCH (20:22)
[2016-10-17] MEDS: ZOLPIDEM 5 MG TABLET PO PRN (20:37)
[2016-10-17] MEDS: ATENOLOL 25 MG TABLET PO SCH (23:05)
[2016-10-18] MEDS: HYDROCODONE/APAP 10-325 MG TABLET PO PRN ×5 (01:06→22:05)
[2016-10-18] MEDS: ZOLPIDEM 5 MG TABLET PO PRN (01:07)
--- NOTE | 2016-10-18 03:10 | NUR ---
REASSESSMENT OCCURRED TWICE AT DIFFERENT TIMES FOR NORCO 1 TAB AND AMBIEN GIVEN AT 2100. THIS IS A REPEAT ENTRY.
[2016-10-18 05:06] VITALS: BP 138/56
[2016-10-18] MEDS: PANTOPRAZOLE SODIUM 40 MG TABLET.DR PO SCH (05:32)
[2016-10-18] MEDS: CEFTAZIDIME 1 G in IV DEXTROSE 5% 50 ML IV SCH ×2 (05:34→17:23)
[2016-10-18] MEDS: ELIQUIS 2.5 MG PO SCH ×2 (08:24→17:23)
[2016-10-18] MEDS: FERROUS SULFATE 325 MG TABEC PO SCH ×2 (08:24→20:32)
[2016-10-18] MEDS: CALCIUM VIT D PO SCH (08:25)
[2016-10-18] MEDS: PRESERVISION PO SCH ×2 (08:25→17:22)
[2016-10-18] MEDS: CRANBERRY 4200 MG PO SCH ×2 (08:25→17:22)
[2016-10-18] MEDS: DILTIAZEM HCL CD 120 MG CAP.SR.24H PO SCH (08:26)
[2016-10-18] MEDS: ATENOLOL 25 MG TABLET PO SCH (08:26)
[2016-10-18] MEDS: FOLIC ACID 1 MG TABLET PO SCH (08:28)
[2016-10-18] MEDS ORDERED: CALCIUM CITRA-VITAMIN D 315 MG-250 UNITS TABLET PO SCH (09:00)
--- NOTE | 2016-10-18 10:43 | NUR ---
PATIENT SEEN AND EXAMINED BY DENISE VIDALES POWDER COAT PAINTER WITH NEW ORDERS AND NOTED
[2016-10-18 11:37] LABS: BASOPHILS # (AUTO) 0.1 K/uL (0.0-8.0); BASOPHILS % (AUTO) 0.5 % (0.0-2.0); EOSINOPHILS # (AUTO) 0.3 K/uL (0.0-0.7); EOSINOPHILS % (AUTO) 1.9 % (0.0-7.0); HEMATOCRIT 32.9 % (37-47); HEMOGLOBIN 10.8 G/DL (12.0-16.0); LYMPHOCYTES # (AUTO) 1.1 K/UL (0.8-4.8); LYMPHOCYTES % (AUTO) 7.1 % (20.5-51.5); MEAN CORPUSCULAR HEMOGLOBIN 30.9 UUG (27.0-31.0); MEAN CORPUSCULAR HGB CONC 33 g/dL (32.0-37.0); MEAN CORPUSCULAR VOLUME 94.3 FL (81.0-99.0); MONOCYTES # (AUTO) 1.7 K/UL (0.1-1.30); MONOCYTES % (AUTO) 11.6 % (0.0-11.0); NEUTROPHILS # (AUTO) 11.8 K/UL (1.8-8.9); NEUTROPHILS % (AUTO) 78.9 % (38.5-71.5); PLATELET COUNT (AUTO) 497 K/UL (150-450); RED BLOOD CELL COUNT(AUTO) 3.49 MIL/UL (4.2-5.4)
[2016-10-18 11:46] LABS: ALANINE AMINOTRANSFERASE 29 U/L (14-59); ALKALINE PHOSPHATASE 66 U/L (50-136); ASPARTATE AMINOTRANSFERASE 24 U/L (15-37); BILIRUBIN,TOTAL 0.3 mg/dL (0.2-1.0); CARBON DIOXIDE 32 mmol/L (21-32); CHLORIDE 102 mmol/L (98-107); CREATININE 1.4 mg/dL (0.6-1.3); GLUCOSE 94 mg/dL (74-106); MAGNESIUM 2.1 mg/dL (1.8-2.4); POTASSIUM 4.6 mmol/L (3.5-5.1); TOTAL PROTEIN, SERUM 6.8 g/dL (6.4-8.2); UREA NITROGEN, BLOOD 21 mg/dL (7-18)
[2016-10-18 11:56] VITALS: BP 136/60
--- NOTE | 2016-10-18 13:27 | NUR ---
MEDICATED FOR C/O PAIN AND DISCOMFORTS ORDERED AND HELPFUL.
[2016-10-18 16:09] VITALS: BP 109/42
--- NOTE | 2016-10-18 18:00 | NUR ---
REMAIN ON ATB ORDERED WITH NO ADVERSE OR ALLERGIC REACTIONS AT THIS TIME.PAIN MEDICATIONS ORDERED PER PATIENTS REQUEST AND HELPFUL.
[2016-10-18 19:00] VITALS: BP 113/58
--- NOTE | 2016-10-18 19:30 | NUR ---
RECEIVED PT UP IN A CHAIR, IN NO ACUTE SIGNS OF DISTRESS. DENIES PAIN AT THIS TIME.. SAFETY OBSERVED. CALL LIGHT WITHIN REACH.
[2016-10-18] MEDS: ATORVASTATIN 20 MG TABLET PO SCH (20:32)
[2016-10-19] MEDS: ZOLPIDEM 5 MG TABLET PO PRN ×2 (00:06→21:49)
[2016-10-19 04:36] VITALS: BP 122/48
[2016-10-19] MEDS: CEFTAZIDIME 1 G in IV DEXTROSE 5% 50 ML IV SCH ×2 (05:44→17:12)
[2016-10-19] MEDS: HYDROCODONE/APAP 10-325 MG TABLET PO PRN ×4 (05:57→21:48)
[2016-10-19] MEDS: PANTOPRAZOLE SODIUM 40 MG TABLET.DR PO SCH (06:07)
--- NOTE | 2016-10-19 06:26 | NUR ---
PT IN BED, SLEEPING, AROUSABLE TO NAME AND TOUCH. ON PAIN MANAGEMENT DILAUDID FOR GEN PAIN, EFFECTIVE FOR FEW HOURS. ALL NEEDS RENDERED. SAFETY MAINTAINED. CALL LIGHT WITHIN REACH. Addendum: 10/19/16 at 0629 by CATHRYN LYNNE RN ON PAIN MANAGEMENT WITH AYAH
[2016-10-19 07:22] LABS: ALANINE AMINOTRANSFERASE 24 U/L (14-59); ALKALINE PHOSPHATASE 62 U/L (50-136); ASPARTATE AMINOTRANSFERASE 21 U/L (15-37); BILIRUBIN,TOTAL 0.3 mg/dL (0.2-1.0); CARBON DIOXIDE 29 mmol/L (21-32); CHLORIDE 102 mmol/L (98-107); CREATININE 1.3 mg/dL (0.6-1.3); GLUCOSE 85 mg/dL (74-106); MAGNESIUM 2.2 mg/dL (1.8-2.4); PHOSPHOROUS 4.1 mg/dL (2.5-4.9); POTASSIUM 4.3 mmol/L (3.5-5.1); TOTAL PROTEIN, SERUM 6.5 g/dL (6.4-8.2); UREA NITROGEN, BLOOD 22 mg/dL (7-18)
[2016-10-19] MEDS: FERROUS SULFATE 325 MG TABEC PO SCH ×2 (08:54→21:46)
[2016-10-19] MEDS: FOLIC ACID 1 MG TABLET PO SCH (08:54)
[2016-10-19] MEDS: ELIQUIS 2.5 MG PO SCH ×2 (08:54→17:12)
[2016-10-19] MEDS: CALCIUM VIT D PO SCH (08:54)
[2016-10-19] MEDS: PRESERVISION PO SCH ×2 (08:54→17:12)
[2016-10-19] MEDS: CRANBERRY 4200 MG PO SCH ×2 (08:54→17:12)
[2016-10-19] MEDS: DILTIAZEM HCL CD 120 MG CAP.SR.24H PO SCH (08:57)
[2016-10-19] MEDS: ATENOLOL 25 MG TABLET PO SCH (08:59)
[2016-10-19 09:00] LABS: BASOPHILS # (AUTO) 0.1 K/uL (0.0-8.0); BASOPHILS % (AUTO) 0.7 % (0.0-2.0); EOSINOPHILS # (AUTO) 0.4 K/uL (0.0-0.7); EOSINOPHILS % (AUTO) 2.8 % (0.0-7.0); HEMATOCRIT 30.8 % (37-47); HEMOGLOBIN 10.4 G/DL (12.0-16.0); LYMPHOCYTES % (AUTO) 7.5 % (20.5-51.5); MEAN CORPUSCULAR HEMOGLOBIN 32.4 UUG (27.0-31.0); MEAN CORPUSCULAR HGB CONC 34 g/dL (32.0-37.0); MEAN CORPUSCULAR VOLUME 95.7 FL (81.0-99.0); MONOCYTES # (AUTO) 1.8 K/UL (0.1-1.30); MONOCYTES % (AUTO) 14.4 % (0.0-11.0); NEUTROPHILS # (AUTO) 9.5 K/UL (1.8-8.9); NEUTROPHILS % (AUTO) 74.6 % (38.5-71.5); PLATELET COUNT (AUTO) 451 K/UL (150-450); RED BLOOD CELL COUNT(AUTO) 3.22 MIL/UL (4.2-5.4); WHITE BLOOD COUNT (AUTO) 12.8 K/UL (4.0-11.2)
--- NOTE | 2016-10-19 10:50 | NUR ---
PATIENT SEEN ANS EXAMINED BY DR FRIEDMAN WITH NEW ORDERS AND NOTED.NOTED WITH OCCASSIONAL COUGH EPISODES WITH LITTLE THIN SPUTUM.REMAINS ON ROOM AIR WITH NO SHORTNESS OF BREATH AT THIS TIME.REMAIN ON ANTIBIOTICS ORDERED WITH NO ADVERSE OR ALLERGIC REACTIONS AT THIS TIME.
[2016-10-19 11:50] VITALS: BP 123/51
[2016-10-19 16:09] VITALS: BP 119/55
--- NOTE | 2016-10-19 18:00 | NUR ---
ALERT AND ORIENTED REMAIN ON ATB ORDERED WITH NO ADVERSE OR ALLERGIC REACTIONS AT THIS TIME.REMAIN ON PAIN MEDICATIONS PER HER REQUEST AND HELPFUL MADE COMFORTABLE NOT IN DISTRESS AT THIS TIME.
[2016-10-19 20:00] VITALS: BP 123/59
--- NOTE | 2016-10-19 20:30 | NUR ---
Dr. Kourtney Siddiqi asked nurse to go with her to Pt. bedside to inform Pt. of Preliminary Bronchoscopy report. Pt. informed by Dr. Siddiqi that the report findings found cancer cells. The disease process and treatment was explained to Pt. by Dr. Siddiqi gently. Dr. Siddiqi and nurse gave Pt. medical/nursing/moral support. Pt. instructed by Dr Siddiqi that upon discharge from this hospital Ct Scan of the abdomen and PET Scan tests will be done on out Pt. clinic. Pt. verbalized understanding. Pt. took he information with great strength/understanding. Pt. 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 Dr. Siddiqi gently explained to Pt the different options/treatment and is available to. Pt. requested Soc Consult, Home Care Nurse and aide to travel during this period of sickness. Dr. Siddiqi to f/Up with Pt request.
--- NOTE | 2016-10-19 21:00 | NUR ---
Pt requested sleeping medication and [place] - for pain.
--- NOTE | 2016-10-19 21:40 | NUR ---
Pt. given [place] one tablet for pain and sleeping medications.
[2016-10-19] MEDS: ATORVASTATIN 20 MG TABLET PO SCH (21:46)
--- NOTE | 2016-10-19 23:00 | NUR ---
Pr. sleeping quietly. No voiced compalint of pain. Nursing support given to Pt. Will continue to monitor /give nursing support to Pt.
--- NOTE | 2016-10-20 | NUR ---
HANDS OFF REPORT FROM YAHAIRA LANE.
--- NOTE | 2016-10-20 00:05 | NUR ---
Pt. endorsed to night nurse. Pt. sleeping quietly. Pt. condition stable.
[2016-10-20 04:12] VITALS: BP 133/68
[2016-10-20] MEDS: CEFTAZIDIME 1 G in IV DEXTROSE 5% 50 ML IV SCH ×2 (05:45→17:22)
[2016-10-20] MEDS: PANTOPRAZOLE SODIUM 40 MG TABLET.DR PO SCH (06:02)
[2016-10-20] MEDS: HYDROCODONE/APAP 10-325 MG TABLET PO PRN ×3 (06:03→20:42)
--- NOTE | 2016-10-20 06:39 | NUR ---
PT SLEPT QUIETLY LAST NIGHT. C/O LOWER BACK PAIN THIS AM. WAS GIVEN WITH NORCO PRESCRIBED. IN NO ACUTE SIGNS OF DISTRESS. SAFETY MAINTAINED.
[2016-10-20 08:08] LABS: BASOPHILS # (AUTO) 0.1 K/uL (0.0-8.0); BASOPHILS % (AUTO) 0.5 % (0.0-2.0); EOSINOPHILS # (AUTO) 0.3 K/uL (0.0-0.7); EOSINOPHILS % (AUTO) 2.4 % (0.0-7.0); HEMATOCRIT 29.9 % (37-47); HEMOGLOBIN 10.2 G/DL (12.0-16.0); LYMPHOCYTES # (AUTO) 0.8 K/UL (0.8-4.8); LYMPHOCYTES % (AUTO) 6.2 % (20.5-51.5); MEAN CORPUSCULAR HEMOGLOBIN 32.7 UUG (27.0-31.0); MEAN CORPUSCULAR HGB CONC 34 g/dL (32.0-37.0); MEAN CORPUSCULAR VOLUME 96.1 FL (81.0-99.0); MONOCYTES # (AUTO) 2.1 K/UL (0.1-1.30); MONOCYTES % (AUTO) 15.2 % (0.0-11.0); NEUTROPHILS # (AUTO) 10.3 K/UL (1.8-8.9); NEUTROPHILS % (AUTO) 75.7 % (38.5-71.5); PLATELET COUNT (AUTO) 415 K/UL (150-450); RED BLOOD CELL COUNT(AUTO) 3.11 MIL/UL (4.2-5.4); WHITE BLOOD COUNT (AUTO) 13.6 K/UL (4.0-11.2)
[2016-10-20 08:30] LABS: ALANINE AMINOTRANSFERASE 20 U/L (14-59); ALKALINE PHOSPHATASE 57 U/L (50-136); ASPARTATE AMINOTRANSFERASE 19 U/L (15-37); BILIRUBIN,TOTAL 0.3 mg/dL (0.2-1.0); CARBON DIOXIDE 27 mmol/L (21-32); CHLORIDE 103 mmol/L (98-107); CREATININE 1.2 mg/dL (0.6-1.3); GLUCOSE 108 mg/dL (74-106); MAGNESIUM 2.1 mg/dL (1.8-2.4); PHOSPHOROUS 3.4 mg/dL (2.5-4.9); POTASSIUM 4.4 mmol/L (3.5-5.1); TOTAL PROTEIN, SERUM 6.1 g/dL (6.4-8.2); UREA NITROGEN, BLOOD 21 mg/dL (7-18)
[2016-10-20] MEDS: ATENOLOL 25 MG TABLET PO SCH (09:00)
--- NOTE | 2016-10-20 09:03 | NUR ---
PATIENT IS ALERT ORIENTED AND VERBALLY RESPONSIVE.REMAIN ON PAIN MANAGEMENT ORDERED AND HELPFUL.PATIENT SEEN BY DR PEARSON AND SHE STATED THAT HAS AN APPOINTMENT TO SEE HER AT HER OFFICE ON WEDNESDAY.
[2016-10-20] MEDS: DILTIAZEM HCL CD 120 MG CAP.SR.24H PO SCH (09:28)
[2016-10-20] MEDS: FERROUS SULFATE 325 MG TABEC PO SCH ×2 (09:28→20:40)
[2016-10-20] MEDS: CRANBERRY 4200 MG PO SCH ×2 (09:28→16:43)
[2016-10-20] MEDS: PRESERVISION PO SCH ×2 (09:28→16:43)
[2016-10-20] MEDS: FOLIC ACID 1 MG TABLET PO SCH (09:28)
[2016-10-20] MEDS: ELIQUIS 2.5 MG PO SCH ×2 (09:29→16:43)
[2016-10-20] MEDS: CALCIUM VIT D PO SCH (09:29)
--- NOTE | 2016-10-20 11:58 | NUR ---
PATIENT SEEN BY HIRAL WITH ORDER TO DISCHARGE PATIENT AFTER BEING SEEN BY THE INFECTIOUS DISEASE DOCTOR FOR DISCHARGE ANTIBIOTICS AND TO PLACE A [facility]LINE IF PATIENT WILL NEED IVATB AT HOME.
[2016-10-20 12:10] VITALS: BP 119/47
--- NOTE | 2016-10-20 12:53 | NUR ---
DR FRIEDMAN HERE TO SEE PATIENT WITH NO NEW ORDERS AT THIS TIME.
[2016-10-20 14:09] LABS: LYMPHOCYTES % (MANUAL) 5 % (20-40); MONOCYTES % (MANUAL) 17 % (2-10); NEUTROPHILS % (MANUAL) 78 % (42-75)
--- NOTE | 2016-10-20 16:00 | NUR ---
HHAS STATED THAT SHE ALREADY FAXED INQUIRY TO THE PATIENTS INSURANCE WHILE WAITING FOR THE FINAL ANTIBIOTICS ORDER.
[2016-10-20 16:09] VITALS: BP 116/45
--- NOTE | 2016-10-20 18:00 | NUR ---
STILL AWAITING FOR DR SCHULTZ TO SEE PATIENT AND TO CONFIRM WHICH ATB FOR PATIENT TO USE AT HOME.
--- NOTE | 2016-10-20 19:40 | NUR ---
PT RECEIVED IN BED, COMFORTABLE. PT IS A/OX4. ABLE TO MAKE NEEDS KNOWN. V/S STABLE. NO SIGNS OF ACUTE DISTRESS. NO COMPLAINTS OF PAIN AT THIS TIME. SAFETY MEASURES IMPLEMENTED. CALL LIGHT WITHIN REACH. WILL CONTINUE TO MONITOR.
[2016-10-20 20:00] VITALS: BP 130/49
[2016-10-20] MEDS: ATORVASTATIN 20 MG TABLET PO SCH (20:40)
[2016-10-20] MEDS ORDERED: LEVOFLOXACIN 500 MG TABLET PO SCH (21:00)
[2016-10-20] MEDS: ZOLPIDEM 5 MG TABLET PO PRN (22:04)
[2016-10-20] MEDS ORDERED: LEVOFLOXACIN 500 MG TABLET ONE (22:13)
[2016-10-21] MEDS: HYDROCODONE/APAP 10-325 MG TABLET PO PRN (05:16)
[2016-10-21 05:27] VITALS: BP 132/69
--- NOTE | 2016-10-21 05:30 | NUR ---
PT SLEPT WELL THROUGHOUT SHIFT. V/S STABLE. NO SIGNS OF ACUTE DISTRESS. REQUESTED PAIN MEDICATION DURING SHIFT. ADMINISTERED ORDERED. VERBALIZED RELIEF OF PAIN. NEEDS ATTENDED. SAFETY MAINTAINED. CALL LIGHT WITHIN REACH.
[2016-10-21] MEDS: PANTOPRAZOLE SODIUM 40 MG TABLET.DR PO SCH (06:53)
[2016-10-21] MEDS: ATENOLOL 25 MG TABLET PO SCH (09:00)
[2016-10-21] MEDS: ELIQUIS 2.5 MG PO SCH (09:15)
[2016-10-21] MEDS: FOLIC ACID 1 MG TABLET PO SCH (09:16)
[2016-10-21] MEDS: CALCIUM VIT D PO SCH (09:16)
[2016-10-21] MEDS: PRESERVISION PO SCH (09:16)
[2016-10-21] MEDS: FERROUS SULFATE 325 MG TABEC PO SCH (09:16)
[2016-10-21] MEDS: CRANBERRY 4200 MG PO SCH (09:16)
[2016-10-21] MEDS: DILTIAZEM HCL CD 120 MG CAP.SR.24H PO SCH (09:16)
[2016-10-21 11:30] VITALS: BP 128/57
--- NOTE | 2016-10-21 11:43 | NUR ---
PATIENT SEEN AND EXAMINED BY DR HUMPHREY WITH OK TO DISCHARGE PATIENT HOME TODAY AND PROVIDED PRESCRIPTION FOR HER.
--- NOTE | 2016-10-21 12:05 | NUR ---
PATIENT DISCHARGED PICKED UP BY HER FRIEND LES IN SATISFACTORY CONDITION WITH DISCHARGE INSTRUCTIONS AND PRESCRIPTIONS AND PATIENT INSTRUCTED TO CALL FOR A FOLLOW UP APPOINTMENT WITH HER PRIMARY DOCTOR ALSO LORENZO PEARSON AND DR SCHULTZ AND SHE EXPRESSED UNDERSTANDING.DR SCHULTZ WAS HERE AND SEEN PATIENT ANS OKAYED FOR PATIENT TO BE DISCHARGED AND TO CONTINUE WITH LEVAQUIN FOR 14 DAYS.PATIENTS HOME MEDICATIONS WAS RETRIEVED FROM THE PHARMACY AND GIVEN TO THE PATIENT.
[2016-10-21] MEDS ORDERED: LEVOFLOXACIN 250 MG TABLET PO SCH (22:00)
== END 2016-10-21 12:05 | disposition home or self-care (01) | DRG 166 ==
LOC: ER 12:20 → TELE 16:15 → MED 10-13 15:00
PROVIDERS: ADMIT Nurse Practitioner Acute Care; ATTEND Nurse Practitioner Acute Care
PROC: 0W993ZX Drainage of Right Pleural Cavity, Percutaneous Approach, Diagnostic (ICD-10-PCS; 2016-10-12)
PROC: 0BBK8ZX Excision of Right Lung, Via Natural or Artificial Opening Endoscopic, Diagnostic (ICD-10-PCS; principal; 2016-10-14 12:00)
DX: C34.90 Malignant neoplasm of unspecified part of unspecified bronchus or lung (principal); J15.9 Unspecified bacterial pneumonia; N17.0 Acute kidney failure with tubular necrosis; I50.33 Acute on chronic diastolic (congestive) heart failure; J15.1 Pneumonia due to Pseudomonas; J44.0 Chronic obstructive pulmonary disease with (acute) lower respiratory infection; J91.0 Malignant pleural effusion; J44.1 Chronic obstructive pulmonary disease with (acute) exacerbation; I13.0 Hypertensive heart and chronic kidney disease with heart failure and stage 1 through stage 4 chronic kidney disease, or unspecified chronic kidney disease; D68.9 Coagulation defect, unspecified; E44.0 Moderate protein-calorie malnutrition; I48.91 Unspecified atrial fibrillation; K21.9 Gastro-esophageal reflux disease without esophagitis; K58.9 Irritable bowel syndrome, unspecified; N18.9 Chronic kidney disease, unspecified; D63.8 Anemia in other chronic diseases classified elsewhere; B96.5 Pseudomonas (aeruginosa) (mallei) (pseudomallei) as the cause of diseases classified elsewhere; D75.89 Other specified diseases of blood and blood-forming organs; I25.10 Atherosclerotic heart disease of native coronary artery without angina pectoris; I70.0 Atherosclerosis of aorta; I48.0 Paroxysmal atrial fibrillation; M06.9 Rheumatoid arthritis, unspecified; N28.1 Cyst of kidney, acquired; K44.9 Diaphragmatic hernia without obstruction or gangrene; Z85.118 Personal history of other malignant neoplasm of bronchus and lung; Z82.49 Family history of ischemic heart disease and other diseases of the circulatory system; Z80.8 Family history of malignant neoplasm of other organs or systems; Z88.1 Allergy status to other antibiotic agents; D50.0 Iron deficiency anemia secondary to blood loss (chronic); M81.0 Age-related osteoporosis without current pathological fracture; M85.80 Other specified disorders of bone density and structure, unspecified site; S32.9XXS Fracture of unspecified parts of lumbosacral spine and pelvis, sequela; S92.909 Unspecified fracture of unspecified foot; X58.XXXS Exposure to other specified factors, sequela; Z86.14 Personal history of Methicillin resistant Staphylococcus aureus infection; Z87.891 Personal history of nicotine dependence; E67.3 Hypervitaminosis D; B37.9 Candidiasis, unspecified; I08.1 Rheumatic disorders of both mitral and tricuspid valves
CPT/HCPCS: 32555; 36415; 70030-TC; 71010; 71250; 76000; 76770; 82306; 82747; 82784; 83550; 83605; 83615; 83735; 83970; 83986; 84100; 84155; 84156; 84165; 84300; 84443; 85014; 85025; 85730; 86334; 87040; 87070; 87075; 87077; 87086; 87205; 93005; 93307; 94640; A4663; J0330; J0456; J0696; J0713; J1100; J2248; J2405; J3490; J7030; J7040; J7060; J8597; Q0144; Q0162

== ENCOUNTER 2017-01-02 09:49 | Emergency (ER) | payer MEDICARE, BC ==
[~2017-01-02] VITALS: Ht 162.6 cm; Wt 63.5 kg
[~2017-01-02 09:49] MED LIST changes: +ATEN25TA PO; +CALC-1026 PO; -CALC500T71 PO; +CRAN1CAP6 PO; +ERGO500040 PO; -FURO-152 PO; -HYDR-3657 PO; +HYDR-3980 PO; +ONDA4TAB11 PO; -VIT1CAPS32 PO
[2017-01-02] MEDS ORDERED: HYDROXYZINE HCL 25 MG PO (10:03)
[2017-01-02] MEDS ORDERED: OXYCODONE HCL 5 MG TABLET PO ONE (11:00)
--- NOTE | 2017-01-02 11:00 | NUR ---
Patient discharged to home in stable conditon with . Written and verbal after care instructions given. Patient verbalizes understanding of instructions.
[2017-01-02] MEDS ORDERED: OXYCODONE HCL 5 MG TABLET ONE (11:10)
== END 2017-01-02 11:01 | disposition home or self-care (01) ==
LOC: ER 09:49
DX: M54.5 Low back pain (principal); I48.91 Unspecified atrial fibrillation; I10 Essential (primary) hypertension; J44.9 Chronic obstructive pulmonary disease, unspecified; K21.9 Gastro-esophageal reflux disease without esophagitis; F17.200 Nicotine dependence, unspecified, uncomplicated; Z88.1 Allergy status to other antibiotic agents
CPT/HCPCS: A4663